=== PATIENT | male | born 1950 | race Caucasian/White ===

== ENCOUNTER → 2022-09-13 13:40 | Outpatient (BNVA) | payer OTHER, SELFPAY | PROVIDERS: PCP Internal Medicine; Visit Provider Internal Medicine | DX: M47.812 Spondylosis without myelopathy or radiculopathy, cervical region (principal); Z91.81 History of falling | CPT/HCPCS: 72040; 99203 ==

== ENCOUNTER 2023-01-30 11:12 | Emergency (ER) | payer OTHER, SELFPAY ==
--- NOTE | ~2023-01-30 | XR_ITS ---
EXAMINATION: XR RIBS, RIGHT CLINICAL INFORMATION: Status post fall COMPARISON: None available. TECHNIQUE: 5 views of the right ribs and chest FINDINGS: No focal consolidation. Bibasilar atelectasis. No pneumothorax. Trachea is midline. Cardiomediastinal silhouette is not enlarged. No large pleural effusion. Soft tissues are unremarkable. Degenerative changes of the thoracolumbar spine. No acute visualized right-sided rib fractures. XR/XR ribs RT min 3V w CXR1V IMPRESSION: 1. Bibasilar atelectasis. 2. No acute visualized right-sided rib fractures.
--- NOTE | ~2023-01-30 | XR_ITS ---
EXAMINATION: XR SHOULDER, RIGHT CLINICAL INFORMATION: Pain COMPARISON: None available. TECHNIQUE: Four views of the right shoulder. FINDINGS: No acute visible fracture or dislocation. 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 Mild degenerative arthropathy of the glenohumeral and acromioclavicular joint. Joint spaces and alignment are well-maintained. Soft tissues are unremarkable. Visualized portions of the right chest are unremarkable. XR/XR shoulder RT min 2V IMPRESSION: 1. No acute visible fracture or dislocation. 2. 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 3. Mild degenerative arthropathy of the glenohumeral and acromioclavicular joint.
[2023-01-30 11:23] VITALS: BP 135/57; PULSE 71; RESP 18; TEMP 36; O2SAT 98; BMI 28.4
--- NOTE | 2023-01-30 11:24 | ED.GENADULT ---
[facility] - General Adult General Chief complaint: Extremity Injury, Upper Stated complaint: Fall/ R shoulder pain work inj Time Seen by Provider: 01/30/23 12:06 Source: patient and RN notes reviewed Mode of arrival: ambulatory Limitations: no limitations History of Present Illness HPI narrative: This is a 72-year-old male presenting to the emergency department for evaluation of right rib pain and right shoulder pain since today. 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 He believes that his right elbow when into his right rib. He endorses right-sided rib pain which worsens with deep inspiration. He states that he is short of breath as he is unable to take a full deep breath secondary to his pain. Denies hitting his head or loss of consciousness. Denies taking any pain medications prior to his arrival. MD complaint: Right rib, right shoulder pain Onset (ago): hour(s) Radiation: non-radiation Quality: aching Pain Consistency: constant Relieving factors: none Exacerbating factors: none Associated symptoms: chest pain Treatments prior to arrival: none Related Data Allergies Allergy/AdvReac Type Severity Reaction Status Date / Time No Known Allergies Allergy Verified 01/30/23 11:22 Review of Systems Review of Systems: Yes all other systems are reviewed and are negative Constitutional: Constitutional: Reports as per [facility] Social History Social History Advance Directives: No Advance Directives Information Provided: No Physical Exam ED Vital Signs: Vital Signs - 24 hr 01/30/23 11:23 Temperature 96.8 F Pulse Rate 71 Respiratory Rate 18 Blood Pressure 135/57 L Pulse Oximetry 98 Oxygen Delivery Method Room Air BMI result Body Mass Index 28.4 Const General: cooperative, comfortable and no acute distress Orientation/consciousness: patient oriented x3 Limitations: no limitations HENMT Other: No hemotympanum noted bilaterally Head: Yes normal to inspection, Yes normocephalic and Yes atraumatic Ears: hearing grossly normal bilaterally General nose exam: Normal external nose present Face and sinus: Yes normal facial exam Mouth: Normal oral and palatal mucosa present, oropharynx normal and moist mucous membranes Throat: Yes posterior oropharynx normal Eyes General: appearance normal, both eyes and all related structures Eyelids: Yes eyelids normal Conjunctivae: conjunctivae normal Sclerae: sclerae normal Pupils: Equal, round and reactive pupils present EOM: EOMs intact bilaterally Neck Neck: Yes normal visual inspection, Yes full ROM and Yes no lymphadenopathy Lymphatic: no lymphadenopathy noted Chest Other: Right lateral ribs with tenderness to palpation on the lateral edge. No ecchymosis, step-off or crepitus. Chest palpation & inspection: normal inspection of the chest Resp Effort & Inspection: normal respiratory effort and able to speak in complete sentences Auscultation: clear to auscultation bilaterally, no crackles, no rales, no rhonchi and no wheezes Cardio Rate: regular rate Rhythm: regular rhythm Heart sounds: S1 normal heart sound present and S2 normal heart sound present GI Other: Abdomen is soft, nontender, nondistended. Inspection: Yes normal to inspection Palpation (GI): Soft to palpation Skin General skin exam: no rashes or lesions noted Trauma: no lacerations or abrasions Wounds: no wounds Neuro General: patient oriented x3 and moves all extremities Cranial nerves: Yes Equal, round and reactive pupils present Extrem Other: Right shoulder diffusely tender throughout joint, able to abduct to about 80 degrees with pain. Radial pulses 2+. No obvious bony deformity, swelling, erythema or warmth. General: Yes normal to inspection Right upper extremity: normal to inspection Left upper extremity: normal to inspection Right lower extremity: normal to inspection Left lower extremity: normal to inspection Course Course Course Narrative: RME- 72-year-old male presents for evaluation right rib pain shoulder pain after a fall. Denies head trauma. Plan for x-rays. Reevaluation(s) Reevaluation #1: x-rays showing bibasilar atelectasis, with no acute visualize right-sided rib fractures. 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 Mild degenerative arthropathy of the glenohumeral AC joint. Discussed results with patient. Given instructions on deep inspirations multiple times per hour to prevent pneumonia. Educated the importance of following up with primary care physician and returning if any new or worsening symptoms occur. Patient understands and agrees with plan. Time: 13:58 Medical Decision Making Medical Decision Making MDM Narrative: 72-year-old male presenting to the emergency department for evaluation of right shoulder and right rib pain since today. 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 Patient has tenderness palpation along the right ribs. Vital signs within normal limits. Patient oxygen saturation 98% on room air, patient is nontoxic on examination. Symptoms likely due to rib contusion versus pneumothorax versus rib fracture. Will obtain rib x-rays for further evaluation. Also reported some shoulder pain in triage. Plan: X-rays Differential Diagnosis Differential Diagnoses: The differential diagnosis associated with the presentation includes Pneumothorax, rib fracture, rib contusion Radiology Impression Discussion of test interpretation with radiology: I have reviewed the radiologist's reading. Radiologist Impression: EXAMINATION: XR SHOULDER, RIGHT CLINICAL INFORMATION: Pain? COMPARISON: None available.? TECHNIQUE: Four views of the right shoulder. FINDINGS: No acute visible fracture or dislocation. 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 Mild degenerative arthropathy of the glenohumeral and acromioclavicular joint. Joint spaces and alignment are well-maintained. Soft tissues are unremarkable. Visualized portions of the right chest are unremarkable. XR/XR shoulder RT min 2V IMPRESSION: 1.? No acute visible fracture or dislocation. 2.? 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 3.? Mild degenerative arthropathy of the glenohumeral and acromioclavicular joint. ? Dictated By: Flako Orozco MD Signed By: <Electronically signed by Flako Orozco MD in [place]> 01/30/23 1338 DD/ 1153 TD/TT:? Holistic Health Practitioner: EXAMINATION: XR RIBS, RIGHT CLINICAL INFORMATION: Status post fall COMPARISON: None available. TECHNIQUE: 5 views of the right ribs and chest FINDINGS: No focal consolidation. Bibasilar atelectasis. No pneumothorax. Trachea is midline. Cardiomediastinal silhouette is not enlarged. No large pleural effusion. Soft tissues are unremarkable. Degenerative changes of the thoracolumbar spine. No acute visualized right-sided rib fractures. XR/XR ribs RT min 3V w CXR1V IMPRESSION: 1.? Bibasilar atelectasis. 2.? No acute visualized right-sided rib fractures. ? Dictated By: Flako Orozco MD Signed By: <Electronically signed by Flako Orozco MD in [place]> 01/30/23 1339 External Record Review External record reviewed: Inpatient record, Office record, Outpatient record, Prior outpatient labs, Prior outpatient radiology, Primary care record and Outside ED record Discharge Plan Discharge Clinical Impression: Contusion of rib on right side, Contusion of shoulder, right Patient Disposition: Home, Self-Care Instructions: Contusion in Adults (ED), Rib Contusion (ED) Additional Instructions: There were no rib fracture seen on your x-rays today. Please take ibuprofen, rest, ice your ribs for relief. Please continue to take deep breath multiple times per hour to prevent pneumonia. Use incentive spirometer given to you today. Your right shoulder x-ray showed calcific tendinosis and degenerative changes. You may follow-up with orthopedics if this continues to cause you pain. If any new or worsening symptoms occur including but not limited to worsening shortness of breath, chest pain, fevers or chills. Please return for re-evaluation. Referrals: [facility] [place] [facility] [Provider Group] Stand Alone Forms: Work/School Release Interventions: ED Discharge Assessment Last Done: 01/30/23 14:23 Discharge Date/Time: 01/30/23 14:24
[2023-01-30 14:06] VITALS: BP 126/67; PULSE 62; RESP 16; TEMP 37.2; O2SAT 98
== END 2023-01-30 14:24 | disposition home or self-care (01) ==
PROVIDERS: Emergency Provider Emergency Medicine
DX: S20.211A Contusion of right front wall of thorax, initial encounter (principal); S40.011A Contusion of right shoulder, initial encounter; W01.0XXA Fall on same level from slipping, tripping and stumbling without subsequent striking against object, initial encounter; Y93.89 Activity, other specified; Y92.480 Sidewalk as the place of occurrence of the external cause; Y99.0 Civilian activity done for income or pay
CPT/HCPCS: 71101; 73030; 99283

== ENCOUNTER 2023-02-22 14:51 | Outpatient (AMB) | payer OTHER, SELFPAY ==
--- NOTE | 2023-02-22 14:55 | A.OFFVIS_ITS ---
Intake Intake Visit Reasons: [employer]-right shoulder injury, DOI 01/30/23 Intake Note: Jaylon a 72 year old right hand dominant male who presents today with spouse for workers comp ER follow up of right shoulder pain, DOI 01/30/23. 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 He [place] [facility] [place] where xrays were taken and referred to orthopedics. Currently he has soreness and limited ROM. States pain with lifting above his shoulder. His pain radiates from his shoulder into his back. Finds temporary relief with Tylenol. 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 He was seen at ED the same day where x-rays were performed and he was referred to our office. He states he has pain and soreness in his shoulder with lifting above his shoulder which radiates to his back. His pain is aggravated at night and he is unable to sleep on his right side. His pain is currently improved since the DOI. He finds transient relief with Tylenol. He has a history of diabetes type 2. His sugar level is currently controlled. 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, right hand dominant Review of Systems Const All systems reviewed & are unremarkable except as noted in HPI and below Physical Exam Const General: cooperative, healthy appearing, comfortable, no acute distress, well developed and alert Orientation/consciousness: patient oriented x3 HEENT Head: Yes normal to inspection, Yes normocephalic and Yes atraumatic Eyes General: appearance normal, both eyes and all related structures Resp Effort & Inspection: normal respiratory effort and able to speak in complete sentences Cardio Rate: regular rate Peripheral pulses: Peripheral pulses 2+ throughout GI Palpation (GI): Soft to palpation Skin Lesions: no lesions Rashes: no rashes Neuro General: patient oriented x3 Extrem Other: Right shoulder normal to inspection. Tenderness over the bicipital groove and along the deltoid region of the shoulder. Forward flexion to 175, external rotation to 90, internal rotation to S1. 5/5 RTC strength. Negative Wade and cross body abduction. NVI. Office Procedures Joint Injection/Drain Joint Injection/Drain Primary Site: right shoulder Prep: site was prepped using aseptic technique, ethochloride spray was applied and injection warnings given Injected: 80 mg of, DepoMedrol, with 8 mL of, 1% plain lidocaine and in the subcromial space Approach Used: posterolateral Procedure: The patient tolerated the procedure well and there was some relief with the local anesthesia Coding 09479 - Glenohumeral/Tronchanteric Bursa/Intraarticular Procedure code (CPT) selection complete Results Reviewed Results Reviewed: 02/22/23 15:23 Lidocaine HCl 2 % MPF [Xylocaine 2 % MPF] 5 ml .ROUTE .STK-MED ONE 02/22/23 15:24 methylPREDNISolone acetate [DEPO-MedroL] 80 mg .ROUTE .STK-MED ONE xrays of the right shoulder obtained on01/30/23 show mild ac joint oa with calcific tendonitis. Assessment & Plan Assessment & Plan (1) Tendinitis of right rotator cuff: Code(s): M75.81 - Other shoulder lesions, right shoulder Plan We discussed options today which include steroid injection. They did consent to move forward with the right shoulder injection, which was tolerated well. I recommended rest, ice and elevation and OTC anti-inflammatories PRN for discomfort. I did refer him to physical therapy and he was also given a handout of home exercises in the office today. We also discussed their diabetes and the effect the steroid can have on their blood glucose levels; therefore, they will continue to monitor these very closely over the next 72 hours. If there are any concerns, they should report to the ED immediately. Orders: Orders PT Evaluation and Treatment 02/22/23 M75.81 - Other shoulder lesions, right shoulder Patient Instructions: Scribed for Derek Alex PA-C, by Tom Mast vice president medical affairs, on 02/22/2023 at 3:00 PM EST. Derek Hughes PA-C, have personally reviewed and agree with the information entered by the scribe. Coding Level of Care Code New Pt Level 3 (28990) Diagnoses Tendinitis of right rotator cuff M75.81 CPT Codes Coding - Joint 7: 55605 - Glenohumeral/Tronchanteric Bursa/Intraarticular ([id number])
== END 2023-02-22 15:36 | disposition home or self-care (01) ==
PROVIDERS: Visit Provider Physician Assistant
DX: M75.81 Other shoulder lesions, right shoulder (principal)
CPT/HCPCS: 20610; 99203

== ENCOUNTER → 2023-02-22 | Outpatient (BNVA) | payer OTHER, SELFPAY | PROVIDERS: Visit Provider Physician Assistant | DX: M75.81 Other shoulder lesions, right shoulder (principal) | CPT/HCPCS: 20610; 99202; J1040 ==

== ENCOUNTER 2023-04-13 14:00 | Outpatient (RCR) | payer OTHER, MEDICARE, BC, SELFPAY ==
--- NOTE | 2023-03-23 14:05 | MHC.PT.EP ---
[facility] [place] Office [place] Office [place] Office [address] [phone] F: [phone] F: [phone] F: [phone] F: [phone] Physical Therapy Plan of Care Date of Evaluation: 03/23/23 Date of Surgery: Diagnosis: Tendonitis of R rotator cuff Assessment: Pt is a 72 y/o male with a hx of cancer and arthritis who presents to the clinic with a script for R rotator cuff tendonitis. Pt has difficulty with reaching above shoulder height, reaching his back for self hygiene and self dressing activities, and carrying objects of weight secondary to decreased shoulder strength, decreased shoulder ROM, tissue healing, and pain. Pt is deemed an appropriate candidate for skilled PT services to address his impairments and to improve his function. Frequency and Duration: The patient will be seen 2x/wk x3wks Short Term Goals: Initiate HEP Improve baseline pain to <3/10; initial: 4/10 Senior Care Goals: [place] with HEP Improve SPADI outcome measure score by at least 13 points; initial: 55/130 Pt will be able to reach for something on a high shelf with <3/10 difficulty; initial: 7/10 difficulty Pt will be able to achieve at least 160 degrees of shoulder abduction AROM; initial: 130 degrees Treatment Plan: Modalities to reduce pain, spasms and effusion. Manual therapy to restore motion and function. Therapeutic exercise to improve strength and flexibility. Neuromuscular re-education for posture and balance. Therapeutic activities to return to functional activities of daily living. Electronically signed by: Please sign and return to therapist. Thank you for your referral.
--- NOTE | 2023-04-13 15:11 | MHC.PT.DC ---
[facility] [place] Office [place] Office [place] Office [address] Willy Andrews [address] [phone] F: [phone] F: [phone] F: [phone] F: [phone] Physical Therapy Discharge Report Diagnosis: Tendonitis of R rotator cuff Date of Surgery: Date of Evaluation: 03/23/23 Date of Discharge: 04/13/23 Treatments to Date: 5 Cancellations to Date: No Shows to Date: Discharge Status: Achieved Goals Improved Function Independent with HEP Discharge Summary: Jaylon has been an active participant in his therapy with good home program compliance. We are in agreement with DC today as he has met some of his therapeutic goals, is improved of some of his initial impairments, and is independent with his home program for self management. Electronically signed by: Casa Ghosh PT Please sign and return to therapist. Thank you for your referral.
== END 2023-04-13 15:12 | disposition home or self-care (01) ==
LOC: HO.PTCHIC 14:00
PROVIDERS: Visit Provider Physician Assistant
DX: M75.81 Other shoulder lesions, right shoulder (principal)
CPT/HCPCS: 97110; 97161